=== PATIENT | female | born 1970 | race Caucasian/White ===

== ENCOUNTER 2018-12-23 16:56 | Inpatient (IN) | payer SELFPAY ==
[~2018-12-23] VITALS: Ht 157.5 cm; Wt 61.7 kg
--- NOTE | 2018-12-23 16:56 | NUR ---
PT BIBA TO BED 09.
[2018-12-23 16:57] VITALS: BP 183/108
--- NOTE | 2018-12-23 17:05 | NUR ---
FLU SWAB DONE.
[2018-12-23] MEDS ORDERED: IBUPROFEN 400 MG TAB PO ONE (17:10)
[2018-12-23] MEDS ORDERED: ALBUTEROL SULFATE/IPRATROPIU 3 ML SOL IH ONE (17:10)
[2018-12-23] MEDS ORDERED: ACETAMINOPHEN EXTRA STRENGTH 500 MG TAB PO ONE (17:10)
--- NOTE | 2018-12-23 17:22 | NUR ---
ADMITTING DX: FEVER HX; DENIES ASTHMA/COPD C/O SOB AT THIS TIME SPOUSE AT BEDSIDE EDCUATIO PROVIDE TO PATIENT AND SPOUSE WITH ACKNOWLEDGEMENT ON HHN THERAPY AND RESPIRATORY DRUG ENCOURAGED PATIENT FOR INTERMITTENT DEEP BREATHING DURING THERAPY
--- NOTE | 2018-12-23 17:23 | NUR ---
Breathing treatment administered by respiratory therapist at bedside.
--- NOTE | 2018-12-23 17:23 | NUR ---
PATIENT BIBA FROM HOME C/O FEVER,COUGH, BODY ACHE X 3 DAYS. SEEN BY PCP DX: FLU. MED HX HTN . DENIES N/V/D; SKIN IS PINK/WARM/DRY; AAOX4 WHEEZING LUNG SOUNDS ALEX; ST ON MONITOR,DENIES CHEST PAIN, C/O SOB, COUGH NOTED, PATIENT STATES GENERALIZED PAIN OF 8/10 AT THIS TIME; PATIENT POSITIONED FOR COMFORT; HOB ELEVATED; BEDRAILS UP X2; BED DOWN. ER MD MADE AWARE OF PT STATUS.
[2018-12-23] MEDS ORDERED: ACETAMINOPHEN EXTRA STRENGTH 500 MG TAB ONE (17:24)
[2018-12-23] MEDS ORDERED: IBUPROFEN 400 MG TAB ONE (17:24)
[2018-12-23 17:31] LABS: BASOPHILS % (AUTO) 0.3 % (0.0-2.0); EOSINOPHILS # (AUTO) 0.1 K/uL (0-0.4); EOSINOPHILS % (AUTO) 0.7 % (0.0-4.0); HEMATOCRIT 36.6 % (36-48); HEMOGLOBIN 12.3 g/dL (12.0-16.0); LYMPHOCYTES # (AUTO) 1.2 K/uL (2.5-16.5); LYMPHOCYTES % (AUTO) 12.4 % (20.5-51.1); MEAN CORPUSCULAR HEMOGLOBIN 28 pg (27-31); MEAN CORPUSCULAR HGB CONC 34 g/dL (33-37); MEAN CORPUSCULAR VOLUME 82.9 fL (80-94); MONOCYTES # (AUTO) 0.6 K/uL (0.8-1.0); MONOCYTES % (AUTO) 6.8 % (1.7-9.3); NEUTROPHILS # (AUTO) 7.4 K/uL (1.8-7.7); NEUTROPHILS % (AUTO) 79.8 % (42.2-75.2); PLATELET COUNT (AUTO) 335 K/uL (140-450); RED BLOOD CELL COUNT(AUTO) 4.41 MIL/uL (4.20-5.40); RED CELL DISTRIBUTION WIDTH 13.6 % (11.6-13.7); WHITE BLOOD COUNT (AUTO) 9.2 K/uL (4.8-10.8)
[2018-12-23] MEDS ORDERED: NACL 0.9% 2,000 ML IV SCH (17:44)
[2018-12-23] MEDS ORDERED: LEVOFLOXACIN 750 MG/D5W PREMIX 150 ML IV ONE (17:45)
[2018-12-23 17:46] LABS: ANION GAP 9.9 (8-16); CARBON DIOXIDE 25.5 mmol/L (21-32); CREATININE 1.1 mg/dL (0.6-1.3); POTASSIUM 4.4 mmol/L (3.5-5.1)
[2018-12-23 17:51] LABS: ALBUMIN 3.3 g/dL (3.4-5.0); TOTAL BILIRUBIN 0.4 mg/dL (0.0-1.0)
--- NOTE | 2018-12-23 18:15 | NUR ---
PT IS OFF UNIT FOR CT.
[2018-12-23 18:20] LABS: APPEARANCE,URINE CLOUDY (CLEAR); BILIRUBIN,URINE NEGATIVE (NEGATIVE); BLOOD, URINE 3+ (NEGATIVE); COLOR,URINE YELLOW (YELLOW); LEUKOCYTE ESTERASE ,URINE 3+ (NEGATIVE); NITRITE, URINE POSITIVE (NEGATIVE); UGLUCOSE NEGATIVE (NEGATIVE)
[2018-12-23 18:22] LABS: RBC,URINE 20-50 /HPF (0-5); WBC,URINE TOO MANY TO COUNT /HPF (0-5)
--- NOTE | 2018-12-23 19:05 | NUR ---
report given to shift lab technician for continue of care.
[2018-12-23] MEDS ORDERED: DOCUSATE SODIUM 100 MG GELCAP PO PRN (19:20)
[2018-12-23] MEDS ORDERED: HYDROcodone/APAP 5/325 MG 1 TAB TAB PO PRN (19:20)
[2018-12-23] MEDS ORDERED: ZOLPIDEM 5 MG TAB PO PRN (19:20)
[2018-12-23] MEDS ORDERED: KETOROLAC 30 MG/ML VIAL IVP PRN (19:20)
[2018-12-23] MEDS ORDERED: ONDANSETRON 4 MG/2 ML VIAL IM/IVP PRN (19:20)
[2018-12-23] MEDS ORDERED: MORPHINE SULFATE 2 MG/ML SYR IVP PRN (19:20)
--- NOTE | 2018-12-23 19:35 | NUR ---
RECEIVED REPORT FROM ER NURSE. PT AWAKE, ALERT AND ORIENTED X4. PT DX PYLONEPHRITIS, KIDNEY STONE AND UTI. LEFT FA 22G INTACT AND INFUSING WELL. PT AT BEDSIDE. BED IN LOWEST POSITION, CALL LIGHT WITHIN REACH. WILL CONTINUE TO MONITOR.
[2018-12-23 19:53] LABS: BARBITURATE, URINE NEG. ng/ml (NEG <=200); BENZODIAZEPINE, URINE NEG. ng/mL (NEG <=200); CANNABINOID, URINE NEG. ng/mL (NEG <=50); COCAINE, URINE NEG. ng/mL (NEG <=300); OPIATE, URINE NEG. ng/mL (NEG <=2000); PHENCYCLIDINE SCREEN,URINE NEG. ng/mL (NEG <=25)
[2018-12-23 19:53] LABS: PROTHROMBIN TIME 9.1 secs (10.8-13.4)
[2018-12-23 20:00] VITALS: BP 120/89
[2018-12-23 20:03] LABS: MAGNESIUM 1.3 mg/dL (1.8-2.4); THYROID STIMULATING HORMONE 0.89 uIU/mL (0.34-3.74)
[2018-12-23] MEDS ORDERED: TELM40TA1 PO (20:18)
[2018-12-23] MEDS ORDERED: MAG SULF 2000 MG/WATER PREMIX 100 ML IV ONE (20:40)
[2018-12-23] MEDS ORDERED: SODIUM PHOS / POTASSIUM PHOS 1 PKT PDR PO SCH (21:00)
[2018-12-23] MEDS ORDERED: TELMISARTAN PO SCH (21:00)
[2018-12-23] MEDS: NACL 0.9% 1,000 ML IV SCH ×2 (21:18→23:03)
--- NOTE | 2018-12-23 21:18 | NUR ---
FIRST N.S BOLUS GIVEN IN ER. 2ND N.S BOLUS STARTED AT THIS TIME.
[2018-12-23] MEDS ORDERED: cefTRIAXone 1,000 MG VIAL ONE (21:36)
--- NOTE | 2018-12-23 22:00 | NUR ---
USED [employer] FORECLOSURE SPECIALIST, [employer] #[id number], TO HAVE PT SIGN CONSENT FOR CYSTOSCOPY. PT REFUSED STATING THAT SHE "NEEDED TO SPEAK WITH MY BECAUSE I DON'T HAVE HEALTH INSURANCE." MD RESIDENT WAS CALLED TO EXPLAIN THE IMPORTANCE OF THE PROCEDURE AND PROVIDE EDUCATION. PT STATED THAT SHE COULD "GET IT DONE FOR LESS [place]ONE[place] IN [place]." PT REFUSED TO SIGN CONSENT FOR PROCEDURE.
[2018-12-24 00:20] VITALS: BP 178/100
--- NOTE | 2018-12-24 00:25 | NUR ---
CALLED MD RESIDENT TO MAKE AWARE OF PT BP OF 178/100. REVIEW ORDERS.
[2018-12-24] MEDS ORDERED: ENALAPRILAT 2.5 MG/2 ML VIAL IVP SCH (01:00)
[2018-12-24] MEDS: ACETAMINOPHEN 325 MG TAB PO PRN (02:27)
--- NOTE | 2018-12-24 02:29 | NUR ---
TYLENOL GIVEN FOR TEMP 101.0
[2018-12-24] MEDS ORDERED: DEXT 5% /NACL 0.9% 1,000 ML IV SCH (02:35)
--- NOTE | 2018-12-24 03:29 | NUR ---
TEMP REASSESSED 97.2
[2018-12-24 04:08] VITALS: BP 128/81
--- NOTE | 2018-12-24 05:15 | NUR ---
PT SLEEPING IN BED, EASILY AROUSABLE. NO VISIBLE SIGNS OF DISTRESS. BREATHING EQUAL AND UNLABORED. BED IN LOW POSITION, CALL LIGHT WITHIN REACH. WILL ENDORSE TO AM NURSE FOR CONTINUITY OF CARE.
[2018-12-24] MEDS ORDERED: POTASSIUM PHOSPHATE 15 MM in NACL 0.9% 250 ML IV ONE (06:20)
--- NOTE | 2018-12-24 07:32 | NUR ---
RECEIVED BEDSIDE REPORT FROM ARCH SUPPORT TECHNICIAN RN FOR CONTINUITY OF CARE. AOX 4. BURKINAN SPEAKING. AT BEDSIDE TO HELP TRANSLATE PER PT REQUEST. DENIES PAIN AND DISCOMFORT. RESPIRATIONS EVEN AND UNLABORED. VITALS STABLE. NPO -PLAN IS FOR PROCEDURE TODAY. SKIN INTACT. PT IS AMBULATORY WITHOUT ASSIST. IV SITE PATENT AND ASYMPTOMATIC, INFUSING IVF PER MD ORDERS. ALL SAFETY PRECAUTIONS IN PLACE, WILL CONTINUE TO MONITOR.
[2018-12-24 07:42] LABS: BASOPHILS % (AUTO) 0.3 % (0.0-2.0); EOSINOPHILS % (AUTO) 0.1 % (0.0-4.0); HEMATOCRIT 32.2 % (36-48); HEMOGLOBIN 10.6 g/dL (12.0-16.0); MEAN CORPUSCULAR HEMOGLOBIN 28 pg (27-31); MEAN CORPUSCULAR HGB CONC 33 g/dL (33-37); MEAN CORPUSCULAR VOLUME 83.3 fL (80-94); MONOCYTES # (AUTO) 0.8 K/uL (0.8-1.0); MONOCYTES % (AUTO) 6.1 % (1.7-9.3); NEUTROPHILS # (AUTO) 11.1 K/uL (1.8-7.7); PLATELET COUNT (AUTO) 288 K/uL (140-450); RED BLOOD CELL COUNT(AUTO) 3.86 MIL/uL (4.20-5.40); RED CELL DISTRIBUTION WIDTH 13.5 % (11.6-13.7); WHITE BLOOD COUNT (AUTO) 12.9 K/uL (4.8-10.8)
[2018-12-24 08:00] VITALS: BP 131/83
[2018-12-24 08:00] LABS: ANION GAP 10.3 (8-16); POTASSIUM 4.3 mmol/L (3.5-5.1)
[2018-12-24 08:05] LABS: PHOSPHORUS 2.7 mg/dL (2.5-4.9)
[2018-12-24 08:28] LABS: CHOL/HDL RATIO 3.4 (1-4.5)
[2018-12-24] MEDS: TAMSULOSIN 0.4 MG CAP PO SCH (08:30)
--- NOTE | 2018-12-24 08:37 | NUR ---
OBTAINED CONSENT FOR CYSTOSCOPY WITH USE OF [employer] EXECUTIVE. [employer] EXECUTIVE NUMBER WRITTEN ON CONSENT FORM.
[2018-12-24 08:39] LABS: LYMPHOCYTES % (AUTO) 7.5 % (20.5-51.1)
[2018-12-24] MEDS: LOSARTAN 50 MG TAB PO SCH ×2 (09:00→20:10)
--- NOTE | 2018-12-24 09:15 | NUR ---
NON-ADMINISTERED FLOMAX AND LOSARTAN. PT IS NPO FOR SURGERY- DR. MOORE STATES WILL BE AT 1000 TODAY. BP AT 0800 WAS 131/83.
--- NOTE | 2018-12-24 09:56 | NUR ---
OR NURSE BENEDICTO HERE TO TAKE PATIENT FOR PROCEDURE. PT IS NOT ON BIG BOARD- UNABLE TO COMPLETE PREOP ASSESSMENT. OR NURSE IS AWARE.
[2018-12-24] MEDS ORDERED: DEXAMETHASONE 4 MG/ML VIAL ONE (10:14)
[2018-12-24] MEDS ORDERED: PROPOFOL 200 MG/20 ML VIAL IV ONE (10:14)
[2018-12-24] MEDS ORDERED: ONDANSETRON 4 MG/2 ML VIAL ONE (10:14)
[2018-12-24] MEDS ORDERED: DESFLURANE 240 ML BTL INH ONE (10:14)
[2018-12-24] MEDS ORDERED: fentaNYL 0.05 MG/ML VIAL ONE (10:24)
[2018-12-24] MEDS ORDERED: ONDANSETRON 4 MG/2 ML VIAL IVP PRN (10:30)
[2018-12-24] MEDS ORDERED: HYDROmorphone 1 MG/ML AMP IVP PRN (10:30)
--- NOTE | 2018-12-24 11:45 | NUR ---
PATIENT BACK FROM OR. RECEIVED REPORT FROM FUNERAL ARRANGERXAVIER DIANE. PER BENEDICTO PARK, RESIDENT MD WILL NEED TO PLACE POST OP ORDERS- DIET AND PAIN MEDICATION. WILL NOTIFY DR. MOORE. Addendum: 12/24/18 at 1202 by Ariane Estrada Meng, RN DENIES PAIN NOW. VITALS STABLE 137/84, HR 102, 91% RA AND RR 15 W/ NO S/S RESPIRATORY DISTRESS, TEMP 99.2 F.
--- NOTE | 2018-12-24 11:51 | NUR ---
HELPED PATIENT AMBULATE TO THE BATHROOM. PT VOIDED. Addendum: 12/24/18 at 1219 by Ariane Estrada Meng, RN NO VISIBLE BLOOD IN URINE.
--- NOTE | 2018-12-24 11:56 | NUR ---
NOTIFIED DR. MCCONNELL THAT SURGEON IS REQUESTING RESIDENT MD TO PLACE POST OP ORDERS.
[2018-12-24 12:00] VITALS: BP 137/84
[2018-12-24] MEDS ORDERED: MORPHINE SULFATE 2 MG/ML SYR IVP PRN (12:05)
[2018-12-24] MEDS: NACL 0.9% 1,000 ML IV SCH (13:20)
--- NOTE | 2018-12-24 13:22 | NUR ---
PT SITTING UP IN BED, EATING LUNCH. NO SIGNS OF N/V. NO C/O PAIN OR DISCOMFORT. WILL CONTINUE TO MONITOR.
--- NOTE | 2018-12-24 14:09 | NUR ---
DR. MOORE AT BEDSIDE TO ANSWER ALL OF PATIENT'S QUESTIONS. PT VERBALIZED COMPLETE UNDERSTANDING. Addendum: 12/24/18 at 1431 by Ariane Estrada Meng, RN WRONG PATIENT
[2018-12-24 16:00] VITALS: BP 127/79
--- NOTE | 2018-12-24 17:41 | NUR ---
SCHEDULED ABX ADMINISTERED. ASKED PATIENT IF THERE IS ANY URETHRAL BLEEDING. PER AT BEDSIDE, THERE IS ONLY A SMEAR OF BLOOD ON TOILET PAPER WHEN WIPING AFTER URINATION.
[2018-12-24] MEDS ORDERED: LEVOFLOXACIN 750 MG/D5W PREMIX 150 ML IV SCH ×2 (18:00)
--- NOTE | 2018-12-24 19:15 | NUR ---
ENDORSED POC TO EYELET CUTTER RN. PT IN STABLE CONDITION.
--- NOTE | 2018-12-24 19:16 | NUR ---
REPORT RECEIVED FROM AM NURSE AT BEDSIDE. PT IN STABLE CONDITION. AAOX4. INTRODUCED SELF TO PT. BOARD UPDATED. NO COMPLAINTS OF PAIN. NO SOB. AFEBRILE. PT SPOUSE AT BEDSIDE. IV SITE L FA 22G RUNNING NS@60ML/HR PATENT AND INTACT. SKIN WARM, DRY, AND INTACT WITH NO OPEN WOUNDS. BED LOCKED IN LOW POSITION. CALL KIM WITHIN REACH. SAFETY PRECAUTION IN PLACE. ALL NEEDS MET AT THIS TIME.
[2018-12-24 20:00] VITALS: BP 147/88
--- NOTE | 2018-12-24 20:09 | NUR ---
FIDELINA CARR AND RUNNING. CUEVASZAJOAQUÍN GIVEN PO. PT TOLERATED WELL.
--- NOTE | 2018-12-24 22:10 | NUR ---
PT SLEEPING COMFORTABLY BUT AROUSABLE. NO S/S OF DISTRESS NOTED. NO COMPLAINTS OF PAIN. NO. SOB. AFEBRILE. WILL CONTINUE TO MONITOR.
[2018-12-25] VITALS: BP 144/87
--- NOTE | 2018-12-25 00:10 | NUR ---
PT SLEEPING COMFORTABLY RIGHT LATERAL BUT AROUSABLE. NO S/S OF DISTRESS NOTED. VS STABLE. NO COMPLAINTS OF PAIN. NO SOB. AFEBRILE. WILL CONTINUE TO MONITOR.
--- NOTE | 2018-12-25 02:35 | NUR ---
PT SLEEPING COMFORTABLY IN BED. NO S/S OF DISTRESS NOTED. RESPIRATIONS EVEN, UNLABORED, AND WNL. WILL CONTINUE TO MONITOR.
[2018-12-25 04:00] VITALS: BP 159/94
--- NOTE | 2018-12-25 04:15 | NUR ---
PT VS STABLE. SLEEPING BUT AROUSABLE. NO S/S OF DISTRESS NOTED. WILL CONTINUE TO MONITOR.
[2018-12-25] MEDS: NACL 0.9% 1,000 ML IV SCH ×2 (05:09→21:24)
--- NOTE | 2018-12-25 06:30 | NUR ---
PT AWAKE AND ALERT IN BED. NO S/S OF DISTRESS NOTED. NO COMPLAINTS OF PAIN. NO SOB. AFEBRILE. WILL CONTINUE TO MONITOR.
--- NOTE | 2018-12-25 07:26 | NUR ---
REPORT GIVEN TO AM NURSE AT BEDSIDE. PT IN STABLE CONDITION.
--- NOTE | 2018-12-25 07:26 | NUR ---
RECEIVED REPORT FROM CLAIMS ADJUSTER CROP NURSE. PATIENT LYING DOWN IN BED SLEEPING, AROUSABLE BY VOICE. NO DISTRESS NOTED. DENIES ANY PAIN. AAOX4, CALM, COOPERATIVE, SKIN COLOR APPROPRIATE TO ETHNICITY, WARM TO TOUCH. SKIN INTACT. RESPIRATIONS EVEN, UNLABORED, ROOM AIR. IV SITE INTACT, PATENT, AND INFUSING IVF PER MD ORDERS. ABDOMEN SOFT, NON-DISTENDED. REVIEWED PLAN OF CARE WITH PATIENT. PATIENT VERBALIZED UNDERSTANDING. SAFETY MEASURES IN PLACE, CALL LIGHT WITHIN REACH. WILL CONTINUE TO MONITOR.
[2018-12-25 08:00] VITALS: BP 155/90
[2018-12-25] MEDS: LOSARTAN 50 MG TAB PO SCH ×2 (08:54→20:08)
[2018-12-25] MEDS: TAMSULOSIN 0.4 MG CAP PO SCH (08:54)
--- NOTE | 2018-12-25 08:55 | NUR ---
PATIENT WALKING AROUND [facility] HALLWAYS AND BACK TO BED. SCHEDULED MEDICATIONS DUE GIVEN. WILL CONTINUE TO MONITOR.
[2018-12-25 10:10] LABS: BASOPHILS % (AUTO) 0.1 % (0.0-2.0); EOSINOPHILS % (AUTO) 0.1 % (0.0-4.0); HEMATOCRIT 33.3 % (36-48); HEMOGLOBIN 10.9 g/dL (12.0-16.0); LYMPHOCYTES # (AUTO) 1.2 K/uL (2.5-16.5); MEAN CORPUSCULAR HEMOGLOBIN 27 pg (27-31); MEAN CORPUSCULAR HGB CONC 33 g/dL (33-37); MEAN CORPUSCULAR VOLUME 83.4 fL (80-94); MONOCYTES # (AUTO) 0.9 K/uL (0.8-1.0); MONOCYTES % (AUTO) 6.3 % (1.7-9.3); NEUTROPHILS # (AUTO) 12.5 K/uL (1.8-7.7); NEUTROPHILS % (AUTO) 85.5 % (42.2-75.2); PLATELET COUNT (AUTO) 324 K/uL (140-450); RED BLOOD CELL COUNT(AUTO) 3.99 MIL/uL (4.20-5.40); RED CELL DISTRIBUTION WIDTH 13.7 % (11.6-13.7); WHITE BLOOD COUNT (AUTO) 14.6 K/uL (4.8-10.8)
--- NOTE | 2018-12-25 11:00 | NUR ---
IV SITE INFILTRATED. NEW IV INSERTED ON RIGHT FOREARM ON FIRST ATTEMPT. PATIENT TOLERATED WELL. WILL CONTINUE TO MONITOR.
[2018-12-25] MEDS: cefTRIAXone 2,000 MG in DEXTROSE 5% 100 ML IV SCH (13:16)
--- NOTE | 2018-12-25 13:20 | NUR ---
PATIENT LYING DOWN IN BED WATCHING TV. NO DISTRESS NOTED. DENIES ANY PAIN. SCHEDULED MEDICATIONS DUE GIVEN. WILL CONTINUE TO MONITOR.
--- NOTE | 2018-12-25 13:21 | NUR ---
PATIENT HAS BEEN SCREENED AND CATEGORIZED HIGH NUTRITION RISK. PATIENT WILL BE SEEN WITHIN 1-2 DAYS OF ADMISSION. 12/24/18ELSA ARTIS MBA, RD
[2018-12-25 16:00] VITALS: BP 154/92
--- NOTE | 2018-12-25 16:57 | NUR ---
12/25/18 RD INITIAL ASSESSMENT COMPLETED PLEASE REFER TO NUTRITION ASSESSMENT UNDER CARE ACTIVITY FOR ESTIMATED NUTRITIONAL NEEDS. RD RECOMMENDATIONS: 1. RECOMMEND CONTINUE REGULAR DIET 2. F/U 3-5 DAYS; MODERATE RISK ELSA ARTIS MBA, RD
--- NOTE | 2018-12-25 17:55 | NUR ---
ASSUMED CARE OF PT, REPORT RECEIVED FROM NURSE LOCKETT. PT SLEEPING AT THIS TIME, EASILY AROUSABLE TO VERBAL STIMILI, ORIENTED AND APPROPRIATE, NO S/S OF ACUTE DISTRESS NOTED AT THIS TIME, CALL LIGHT AND PERSONAL ITEMS WITHIN EASY REACH, SAFETY MEASURES IN PLACE, WILL CONTINUE TO MONITOR.
--- NOTE | 2018-12-25 19:12 | NUR ---
REPORT GIVEN TO NIGHT NURSE NOEMI, PT AWAKE, A/O AND APPROPRIATE. PT HAS NO COMPLAINTS AT THIS TIME, CALL LIGHT AND PERSONAL ITEMS WITHIN EASY REACH, SAFETY MEASURES IN PLACE NO S/S OF ACUTE DISTRESS NOTED.
--- NOTE | 2018-12-25 19:13 | NUR ---
RECEIVED REPORT FROM AM NURSE. PT AWAKE, ALERT AND ORIENTED X4. PT WATCHING TV IN BED. NO C/O DISCOMFORT. SAFETY MEASURES IN PLACE. CALL LIGHT WITHIN REACH. WILL CONTINUE TO MONITOR.
[2018-12-25] MEDS: ACETAMINOPHEN 325 MG TAB PO PRN (20:09)
--- NOTE | 2018-12-25 20:09 | NUR ---
TYLENOL GIVEN FOR TEMP 100.5
--- NOTE | 2018-12-25 21:09 | NUR ---
TEMP REASSESSED, 96.8 AT THIS TIME.
[2018-12-25 22:38] LABS: MAGNESIUM 1.9 mg/dL (1.8-2.4); PHOSPHORUS 2.1 mg/dL (2.5-4.9)
--- NOTE | 2018-12-25 23:36 | NUR ---
ROUNDED ON PT. PT SLEEPING IN BED. NO VISIBLE S/S OF DISTRESS. BREATHING EQUAL AND UNLABORED. SAFETY MEASURES IN PLACE. CALL LIGHT AT BEDSIDE. WILL CONTINUE TO MONITOR.
[2018-12-26 00:05] VITALS: BP 141/87
--- NOTE | 2018-12-26 00:15 | NUR ---
VITALS TAKEN. PT SLEEPING IN BED, EASILY AROUSABLE. NO C/O DISCOMFORT. SAFETY MEASURES IN PLACE. CALL LIGHT WITHIN REACH. WILL CONTINUE TO MONITOR.
[2018-12-26] MEDS: NACL 0.9% 1,000 ML IV SCH (00:37)
--- NOTE | 2018-12-26 02:15 | NUR ---
ROUNDED ON PT. PT SLEEPING IN BED, NO VISIBLE SIGNS OF DISTRESS. SAFETY MEASURES IN PLACE. CALL LIGHT WITHIN REACH.
--- NOTE | 2018-12-26 04:30 | NUR ---
ROUNDED ON PT. PT SLEEPING, BREATHING EQUAL AND UNLABORED. SAFETY MEASURES IN PLACE. CALL LIGHT WITHIN REACH. WILL CONTINUE TO MONITOR.
--- NOTE | 2018-12-26 06:12 | NUR ---
ROUNDED ON PT. PT STANDING AT SINK BRUSHING HAIR. NO C/O DISCOMFORT. ALL NEEDED ATTENDED TO. WILL CONTINUE TO MONITOR.
[2018-12-26 07:04] LABS: BASOPHILS % (AUTO) 0.1 % (0.0-2.0); EOSINOPHILS # (AUTO) 0.1 K/uL (0-0.4); EOSINOPHILS % (AUTO) 0.8 % (0.0-4.0); HEMATOCRIT 31.7 % (36-48); HEMOGLOBIN 10.6 g/dL (12.0-16.0); LYMPHOCYTES # (AUTO) 1.5 K/uL (2.5-16.5); MEAN CORPUSCULAR HEMOGLOBIN 28 pg (27-31); MEAN CORPUSCULAR HGB CONC 34 g/dL (33-37); MEAN CORPUSCULAR VOLUME 82.8 fL (80-94); MONOCYTES # (AUTO) 0.6 K/uL (0.8-1.0); MONOCYTES % (AUTO) 5.4 % (1.7-9.3); NEUTROPHILS # (AUTO) 8.2 K/uL (1.8-7.7); NEUTROPHILS % (AUTO) 79.7 % (42.2-75.2); PLATELET COUNT (AUTO) 302 K/uL (140-450); RED BLOOD CELL COUNT(AUTO) 3.82 MIL/uL (4.20-5.40); RED CELL DISTRIBUTION WIDTH 13.7 % (11.6-13.7); WHITE BLOOD COUNT (AUTO) 10.3 K/uL (4.8-10.8)
--- NOTE | 2018-12-26 07:15 | NUR ---
ENDORSED PT TO AM NURSE, PT IN STABLE CONDITION.
--- NOTE | 2018-12-26 07:50 | NUR ---
PATIENT WAS AWAKE, ALERT. RESPIRATION EVEN, UNLABOR ON ROOM AIR. SKIN DRY AND WARM. IV PATENT AND INTACT. DENIED PAIN AT THIS TIME. PLAN OF CARE WAS DISCUSSED WITH PATIENT. BED AT LOW POSITION, SIDE RAILS WITHIN REACH. PATIENT WAS ASSISTED TO GO TO BATHROOM, AMBULATORY WITH STEADY GAIT
[2018-12-26 08:00] VITALS: BP 164/114
[2018-12-26 08:12] LABS: ANION GAP 12.9 (8-16); CARBON DIOXIDE 21.9 mmol/L (21-32); CREATININE 1.1 mg/dL (0.6-1.3); POTASSIUM 3.8 mmol/L (3.5-5.1)
[2018-12-26 08:21] LABS: MAGNESIUM 1.8 mg/dL (1.8-2.4); PHOSPHORUS 2.2 mg/dL (2.5-4.9)
[2018-12-26] MEDS: TAMSULOSIN 0.4 MG CAP PO SCH (08:55)
[2018-12-26] MEDS: LOSARTAN 50 MG TAB PO SCH (08:56)
[2018-12-26] MEDS ORDERED: TAMS0.4C96 PO (08:58)
[2018-12-26] MEDS ORDERED: CEFD300C3 PO (08:58)
[2018-12-26] MEDS ORDERED: SODIUM PHOS / POTASSIUM PHOS 1 PKT PDR PO SCH (09:00)
--- NOTE | 2018-12-26 10:30 | NUR ---
PATIENT WANTED TO TAKE A SHOWER. IV WAS DISCONNECTED. HYGIENE KIT WAS PROVIDED TO THE PATIENT
--- NOTE | 2018-12-26 11:19 | NUR ---
PT ALERT, AWAKE. MEDICATIONS GIVEN PER ORDER. NO DISTRESS NOTED. Addendum: 12/26/18 at 1129 by Windy Wolfe RN CORRECTION: TIME AT 0930
--- NOTE | 2018-12-26 12:00 | NUR ---
PATIENT WAS AWAKE, ALERT. RESPIRATION EVEN, UNLABOR ON ROOM AIR. DENIED PAIN AT THIS TIME. NO DISTRESS NOTED
[2018-12-26] MEDS: cefTRIAXone 2,000 MG in DEXTROSE 5% 100 ML IV SCH (12:17)
[2018-12-26 13:00] VITALS: BP 176/104
--- NOTE | 2018-12-26 13:20 | NUR ---
DR. MOORE WAS MADE AWARE PATIENT'S BP STAYED ELEVATED. ADVISED TO GIVE PAIN MED AND NEW BP MEDICATION. PATIENT WAS MADE AWARE OF THE PLAN. PATIENT REFUSED THE TREATMENT, STATED THAT SHE HAD DIFFERENT MEDICATION AT HOME AND HER BP IS WELL CONTROLLED WITH THAT. DR LILLY WAS MADE AWARE. OK TO CONTINUE TO DISCHARGE PATIENT PER
[2018-12-26] MEDS ORDERED: hydrALAZINE 10 MG TAB PO SCH (13:30)
--- NOTE | 2018-12-26 13:30 | NUR ---
DISCHARGE INSTRUCTION AND PRESCRIPTION WERE GIVEN AND EXPLAINED TO PATIENT VIA HEART COORDINATOR [id number]. PATIENT VERBALIZED UNDERSTANDING. IV WAS REMOVED, CATHETER INTACT, NO ACTIVE BLEEDING SEEN. ALL BELONGINGS WERE TAKEN WITH THE PATIENT. PATIENT WAS ESCORTED OUT BY STAFF, AMBULATORY WITH STEADY GAIT. PATIENT IS STABLE AT THIS TIME
== END 2018-12-26 13:30 | disposition home or self-care (01) | DRG 854 ==
LOC: MED 16:56 → MTU 19:17
PROVIDERS: ADMIT General Practice; ATTEND General Practice
PROC: BT1D1ZZ Fluoroscopy of Right Kidney, Ureter and Bladder using Low Osmolar Contrast (ICD-10-PCS; 2018-12-24)
PROC: 0T768DZ Dilation of Right Ureter with Intraluminal Device, Via Natural or Artificial Opening Endoscopic (ICD-10-PCS; principal; 2018-12-24 10:00)
DX: A41.9 Sepsis, unspecified organism (principal); N13.6 Pyonephrosis; E44.0 Moderate protein-calorie malnutrition; J98.11 Atelectasis; K86.2 Cyst of pancreas; I10 Essential (primary) hypertension; E83.42 Hypomagnesemia; E87.8 Other disorders of electrolyte and fluid balance, not elsewhere classified; D64.9 Anemia, unspecified; K43.9 Ventral hernia without obstruction or gangrene; K46.9 Unspecified abdominal hernia without obstruction or gangrene; R31.9 Hematuria, unspecified; I16.0 Hypertensive urgency; E86.0 Dehydration; E83.52 Hypercalcemia; E83.39 Other disorders of phosphorus metabolism; Z68.24 Body mass index [BMI] 24.0-24.9, adult; Z90.5 Acquired absence of kidney; Z87.442 Personal history of urinary calculi; Z88.8 Allergy status to other drugs, medicaments and biological substances; Z79.899 Other long term (current) drug therapy
CPT/HCPCS: 36415; 71045; 74430; 77003; 80048; 80053; 80305; 81001; 82150; 82310; 83036; 83605; 83690; 83735; 83880; 84100; 84134; 84443; 84484; 85025; 85610; 85730; 87040; 87081; 87086; 87186; 87804; 93005; 94640; 96365; 99285; C1769; C1874; J0696; J1100; J1956; J2405; J2704; J3010; J3475; J3490; J7030; J7042; J7060; J7620; Q0092; Q9965